=== PATIENT | female | born 1965 | race Caucasian/White ===

== ENCOUNTER → 2019-03-02 | Outpatient (CLI) | payer BC ==
--- NOTE | 2019-03-02 10:32 | Diagnostic Imaging Report ---
PROCEDURE: CT sinuses without contrast. TECHNIQUE: Multiple contiguous axial images were obtained through the sinuses without the use of intravenous contrast. Coronal and sagittal reformations were then performed. Auto Exposure Controls were utilized during the CT exam to meet ALARA standards for radiation dose reduction. INDICATION: Cough and chronic sinusitis. FINDINGS: The frontal, ethmoid, sphenoid, and maxillary sinuses are clear. The ostiomeatal complexes are widely patent. There are no manny bullosa. There is mild tortuosity of the nasal septum. The globes and intraorbital structures are unremarkable. The nasopharyngeal soft tissues are symmetric and without mass effect. IMPRESSION: Unremarkable CT sinus. Dictated by: Dictated on workstation # [id number]
== END ==
LOC: RAD FS 09:39
PROVIDERS: ATTEND Otolaryngology Otolaryngology/Facial Plastic Surgery
DX: J32.1 Chronic frontal sinusitis (principal); J32.0 Chronic maxillary sinusitis
CPT/HCPCS: 70486

== ENCOUNTER → 2019-07-15 | Outpatient (CLI) | payer OTHER, BC ==
--- NOTE | 2019-07-15 10:55 | Diagnostic Imaging Report ---
Left wrist at 1007 hours. INDICATION: Fell, wrist pain. FINDINGS: On the lateral view, there is a vague area of slightly increased density overlying the distal radial metaphyses. This finding is not well appreciated on the other views and may be secondary to superimposition alone. The possibility that there is a minimal impaction fracture of the distal radius should still be considered. If further imaging is desired, then CT would be recommended. The radiocarpal joint is well maintained. The soft tissues are unremarkable. IMPRESSION: 1. There is a question of a minimal impaction fracture of the distal radius. Additional considerations as above. 2. There is no acute bony abnormality noted otherwise. Dictated by: Dictated on workstation # [id number]
== END ==
LOC: RAD FS 10:03
PROVIDERS: ATTEND Nurse Practitioner
DX: S52.592A Other fractures of lower end of left radius, initial encounter for closed fracture (principal); W19.XXXA Unspecified fall, initial encounter
CPT/HCPCS: 73110

== ENCOUNTER → 2019-08-03 | Outpatient (CLI) | payer OTHER, BC ==
--- NOTE | 2019-08-03 08:53 | Diagnostic Imaging Report ---
INDICATION: Fracture. COMPARISON: 07/15/2019. TECHNIQUE: Four radiographs of the left wrist are dated 08/03/2019. FINDINGS: Cast material is in place which limits evaluation of the underlying osseous structures. Within the limits of the examination, there is no acute fracture or dislocation. No definite healing fracture is associated with the distal radius. Evaluation of the triquetral bone is significantly limited secondary to overlying cast material. The carpal alignment is well maintained. The scapholunate distance is within normal limits. IMPRESSION: Cast material is in place which limits evaluation. No definitive evidence of an acute or healing fracture. Dictated by: Dictated on workstation # [id number]
== END ==
LOC: RAD FS 08:08
PROVIDERS: ATTEND Nurse Practitioner
DX: S52.592D Other fractures of lower end of left radius, subsequent encounter for closed fracture with routine healing (principal); S62.112D Displaced fracture of triquetrum [cuneiform] bone, left wrist, subsequent encounter for fracture with routine healing
CPT/HCPCS: 73110

== ENCOUNTER → 2019-08-23 | Outpatient (CLI) | payer OTHER, BC ==
--- NOTE | 2019-08-23 08:30 | Diagnostic Imaging Report ---
INDICATION: Left wrist fracture. EXAMINATION: AP, oblique and lateral views of the left wrist are obtained. FINDINGS: Since 08/03/2019, there has been further obscuration of distal left radial fracture. There is a sclerotic band in the metaphysis at site of previous fracture. No new fracture or malalignment is identified. IMPRESSION: Apparent good healing of left radial metaphyseal fracture without new abnormality detected. Dictated by: Dictated on workstation # [id number]
== END ==
LOC: RAD FS 08:10
PROVIDERS: ATTEND Nurse Practitioner
DX: S62.112D Displaced fracture of triquetrum [cuneiform] bone, left wrist, subsequent encounter for fracture with routine healing (principal)
CPT/HCPCS: 73100

== ENCOUNTER → 2020-05-09 | Outpatient (CLI) | payer BC ==
--- NOTE | 2020-05-09 14:05 | Diagnostic Imaging Report ---
INDICATION: Shoulder pain. TECHNIQUE: Three views of the left shoulder were obtained. FINDINGS: The alignment is normal. There is no fracture or dislocation. The left lung is clear. The soft tissues are unremarkable. IMPRESSION: No acute radiographic abnormality. Dictated by: Dictated on workstation # [id number]
== END ==
LOC: RAD FS 12:06
PROVIDERS: ATTEND Family Medicine
DX: G89.29 Other chronic pain (principal); M25.512 Pain in left shoulder
CPT/HCPCS: 73030

== ENCOUNTER → 2020-05-10 | Outpatient (CLI) | payer BC ==
[2020-05-10 08:46] LABS: BASOPHILS # (AUTO) 0.1 10^3/uL (0.0-0.1); BASOPHILS % (AUTO) 1 % (0-10); EOSINOPHILS # (AUTO) 0.4 10^3/uL (0.0-0.3); EOSINOPHILS % (AUTO) 6 % (0-10); HEMATOCRIT 42 % (35-52); HEMOGLOBIN 13.8 G/DL (11.5-16.0); LYMPHOCYTES # (AUTO) 2.6 X 10^3 (1.0-4.0); LYMPHOCYTES % (AUTO) 36 % (12-44); MEAN CORPUSCULAR HEMOGLOBIN 29 PG (25-34); MEAN CORPUSCULAR HGB CONC 33 G/DL (32-36); MEAN CORPUSCULAR VOLUME 89 FL (80-99); MEAN PLATELET VOLUME 10.2 FL (7.4-10.4); MONOCYTES # (AUTO) 0.6 X 10^3 (0.0-1.0); MONOCYTES % (AUTO) 8 % (0-12); NEUTROPHILS # (AUTO) 3.5 X 10^3 (1.8-7.8); NEUTROPHILS % (AUTO) 49 % (42-75); PLATELET COUNT 268 10^3/uL (130-400); WHITE BLOOD COUNT 7.3 10^3/uL (4.3-11.0)
[2020-05-10 09:03] LABS: ALBUMIN 4.1 GM/DL (3.2-4.5); BILIRUBIN,TOTAL 0.3 MG/DL (0.1-1.0); CALCIUM 9.4 MG/DL (8.5-10.1); CREATININE SERUM 0.96 MG/DL (0.60-1.30); POTASSIUM 4.3 MMOL/L (3.6-5.0); TOTAL PROTEIN 6.8 GM/DL (6.4-8.2)
== END ==
LOC: LAB FS 08:20
PROVIDERS: ATTEND Family Medicine
DX: Z00.00 Encounter for general adult medical examination without abnormal findings (principal); Z79.899 Other long term (current) drug therapy
CPT/HCPCS: 36415; 80053; 80061; 85025

== ENCOUNTER 2020-06-13 10:25 | Emergency (ER) | payer BC ==
[~2020-06-13] VITALS: Ht 154.9 cm; Wt 85.0 kg
--- NOTE | 2020-06-13 10:46 | ED General ---
General Chief Complaint: Chest Pain Stated Complaint: CHEST PAIN Nursing Triage Note: Patient reports onset of left chest pain that radiates to upper back last night, states it has worsened this morning. She states the pain is constant and sharpens periodically. She reports the pain worsens with deep breathing. She denies any fever, cough, or shortness of breath. She denies any nausea or vomiting. Nursing Sepsis Screen: No Definite Risk History of Present Illness Date Seen by Provider: Jun 13, 2020 Time Seen by Provider: 10:46 Initial Comments Patient presenting to emergency department for evaluation of left-sided chest pain that started yesterday evening and has persisted and been constant through the night into this morning as well. She describes it as a constant ache that becomes much more intense when she takes a deep breath she feels a sharp stabbing pain. She said she had bronchitis a week or 2 ago. She denies any current cough fever shortness of breath nausea vomiting or diaphoresis. She denies any history of diabetes hypertension high cholesterol smoking or family history of heart disease. She denies any prior cardiac risk stratification. She does have signs of a left bundle branch block on her EKG and I asked her if she does have an abnormal EKG and she said that she does but she did not know what exactly was wrong within the past. She said she had issues with tachycardia but no arrhythmias and she is not on any blood thinners. She is in no obvious distress with normal vital signs. Allergies and Home Medications Allergies Coded Allergies: azithromycin (Verified Allergy, Unknown, itching, 06/13/20) erythromycin base (Verified Allergy, Unknown, 06/13/20) morphine (Verified Allergy, Unknown, itching, 06/13/20) Patient Home Medication List Home Medication List Reviewed: Yes Review of Systems Review of Systems Constitutional: no symptoms reported EENTM: no symptoms reported Respiratory: no symptoms reported Cardiovascular: chest pain Gastrointestinal: no symptoms reported Genitourinary: no symptoms reported Musculoskeletal: no symptoms reported Skin: no symptoms reported Psychiatric/Neurological: No Symptoms Reported All Other Systems Reviewed Negative Unless Noted: Yes Past Xbbikdl-Vnpber-Duonph Hx Patient Social History Recent Foreign Travel: No Contact w/Someone Who Travel: No Recent Infectious Disease Expo: No Physical Exam Vital Signs Vital Signs - First Documented 06/13/20 10:39 Temp 36.8 Pulse 80 Resp 16 B/P (MAP) 133/70 (91) Pulse Ox 97 O2 Delivery Room Air Capillary Refill : Less Than 3 Seconds Height, Weight, BMI Height: '" Weight: lbs. oz. kg; 35.00 BMI Method: General Appearance: No Apparent Distress, WD/WN HEENT: PERRL/EOMI Neck: Supple Respiratory: Chest Non Tender, No Respiratory Distress Cardiovascular: Regular Rate, Rhythm Gastrointestinal: Non Tender, Soft Back: Normal Inspection Extremity: Normal Capillary Refill, No Pedal Edema Neurologic/Psychiatric: Alert, Oriented x3 Skin: Warm/Dry Progress/Results/Core Measures Suspected Sepsis Recent Fever Within 48 Hours: No Infection Criteria Present: None New/Unexplained Altered Menta: No Sepsis Screen: No Definite Risk SIRS Temperature: Pulse: 80 Respiratory Rate: 16 Laboratory Tests 06/13/20 10:55: White Blood Count 9.1 Blood Pressure 133 /70 Mean: 91 Laboratory Tests 06/13/20 10:55: Creatinine 0.88, INR Comment 0.9, Platelet Count 299, Total Bilirubin 0.2 Results/Orders Lab Results Laboratory Tests Test 06/13/20 10:55 Range/Units White Blood Count 9.1 4.3-11.0 10^3/uL Red Blood Count 4.96 4.35-5.85 10^6/uL Hemoglobin 14.8 11.5-16.0 G/DL Hematocrit 44 35-52 % Mean Corpuscular Volume 88 80-99 FL Mean Corpuscular Hemoglobin 30 25-34 PG Mean Corpuscular Hemoglobin Concent 34 32-36 G/DL Red Cell Distribution Width 13.1 10.0-14.5 % Platelet Count 299 130-400 10^3/uL Mean Platelet Volume 10.3 7.4-10.4 FL Immature Granulocyte % (Auto) 0 % Neutrophils (%) (Auto) 56 42-75 % Lymphocytes (%) (Auto) 33 12-44 % Monocytes (%) (Auto) 7 0-12 % Eosinophils (%) (Auto) 4 0-10 % Basophils (%) (Auto) 1 0-10 % Neutrophils # (Auto) 5.1 1.8-7.8 X 10^3 Lymphocytes # (Auto) 3.0 1.0-4.0 X 10^3 Monocytes # (Auto) 0.6 0.0-1.0 X 10^3 Eosinophils # (Auto) 0.3 0.0-0.3 10^3/uL Basophils # (Auto) 0.1 0.0-0.1 10^3/uL Immature Granulocyte # (Auto) 0.0 0.0-0.1 10^3/uL Prothrombin Time 12.2 12.2-14.7 SEC INR Comment 0.9 0.8-1.4 Activated Partial Thromboplast Time 27 24-35 SEC D-Dimer 0.25 0.00-0.49 UG/ML Sodium Level 140 135-145 MMOL/L Potassium Level 3.9 3.6-5.0 MMOL/L Chloride Level 106 98-107 MMOL/L Carbon Dioxide Level 22 21-32 MMOL/L Anion Gap 12 5-14 MMOL/L Blood Urea Nitrogen 21 H 7-18 MG/DL Creatinine 0.88 0.60-1.30 MG/DL Estimat Glomerular Filtration Rate > 60 BUN/Creatinine Ratio 24 Glucose Level 104 70-105 MG/DL Calcium Level 9.6 8.5-10.1 MG/DL Corrected Calcium 8.5-10.1 MG/DL Total Bilirubin 0.2 0.1-1.0 MG/DL Aspartate Amino Transf (AST/SGOT) 17 5-34 U/L Alanine Aminotransferase (ALT/SGPT) 18 0-55 U/L Alkaline Phosphatase 95 40-136 U/L Troponin I < 0.30 <0.30 NG/ML Pro-B-Type Natriuretic Peptide 95.3 H <75.0 PG/ML Total Protein 7.4 6.4-8.2 GM/DL Albumin 4.6 H 3.2-4.5 GM/DL My Orders Orders - JARROD ALCARAZ DO Cbc With Automated Diff (06/13/20 10:55) Comprehensive Metabolic Panel (06/13/20 10:55) Fibrin Degradation Products (06/13/20 10:55) Iv/Invasive Line Insertion .IV start (06/13/20 10:55) Lipase (06/13/20 10:55) Partial Thromboplastin Time (06/13/20 10:55) Probnp Fs (06/13/20 10:55) Protime With Inr (06/13/20 10:55) Troponin I Fs (06/13/20 10:55) Chest 1 View Ap/Pa Only (06/13/20 10:55) Ekg Tracing (06/13/20 10:55) Aspirin Chewable Tablet (Baby Aspirin Ch (06/13/20 11:00) Ketorolac Injection (Toradol Injection) (06/13/20 11:00) Hydrocodone/Apap 5/325 Tablet (Lortab 5 (06/13/20 11:00) Medications Given in ED Current Medications Medications Dose Ordered Sig/Kristal Route Start Time Stop Time Status Last Admin Dose Admin Acetaminophen/ Hydrocodone Bitart 2 tab ONCE ONCE PO 06/13/20 11:00 06/13/20 11:01 DC 06/13/20 11:14 2 TAB Aspirin 324 mg ONCE ONCE PO 06/13/20 11:00 06/13/20 11:01 DC 06/13/20 11:14 324 MG Ketorolac Tromethamine 15 mg ONCE ONCE IVP 06/13/20 11:00 06/13/20 11:01 DC 06/13/20 11:14 15 MG Vital Signs/I&O 06/13/20 06/13/20 10:39 10:43 Temp 36.8 Pulse 80 Resp 16 B/P (MAP) 133/70 (91) Pulse Ox 97 O2 Delivery Room Air Room Air Capillary Refill : Less Than 3 Seconds 2 Blood Pressure Mean: 91 Progress Note : Progress Note Patient's pain improved significantly after aspirin Toradol and [place] emergency department however she says she does still have some pain when she takes a deep breath but is much improved. EKG and trop are negative more than 6 hours from onset of pain. I discussed the results of all the testing with the patient and further planning including inpatient versus outpatient testing and treatment. Patient's heart scores equal to 3 putting her at low risk for adverse cardiac event and using shared decision making patient decided she would like to go home and follow with primary care provider as an outpatient within the next 72 hours. I told her that this is likely pleurisy and that she can take an aspirin daily and ibuprofen as well for pain and [place] for breakthrough pain but she should follow with her primary care provider and come back to the ED sooner with worsening pain shortness of breath with or general concerns. Patient aware and agreeable with plan for discharge and verbalized understanding of the above instructions. Departure Impression Primary Impression: Pleuritic chest pain Disposition: HOME, SELF-CARE Condition: Stable Departure-Patient Inst. Referrals: MARI JETT MD (PCP/Family) Primary Care Physician Patient Instructions: Pleuritic Chest Pain (DC) Add. Discharge Instructions: Take 81mg aspirin daily Take 600mg ibuprofen every 6 hours for pain [place] for breakthrough pain. PCP f/u this week. Come back with worsening symptoms. Thank you! All discharge instructions reviewed with patient and/or family. Voiced understanding. Scripts Hydrocodone/Acetaminophen (Hydrocodone-Acetamin 5-325 mg) 1 Each Tablet 1 EACH PO Q8H PRN for PAIN-SEVERE (8-10), #6 TAB Prov: JARROD ALCARAZ DO 06/13/20 JARROD ALCARAZ DO Jun 13, 2020 10:46
[2020-06-13] MEDS ORDERED: KETOROLAC 30 MG/ML VIAL IVP ONE (11:00)
[2020-06-13] MEDS ORDERED: ASPIRIN 81 MG CHEW (CHILDREN'S ASA) PO ONE (11:00)
[2020-06-13] MEDS ORDERED: HYDROcodone/APAP 5 MG/325 MG (LORTAB) TAB PO ONE (11:00)
[2020-06-13 11:05] LABS: BASOPHILS # (AUTO) 0.1 10^3/uL (0.0-0.1); BASOPHILS % (AUTO) 1 % (0-10); EOSINOPHILS # (AUTO) 0.3 10^3/uL (0.0-0.3); EOSINOPHILS % (AUTO) 4 % (0-10); HEMATOCRIT 44 % (35-52); HEMOGLOBIN 14.8 G/DL (11.5-16.0); LYMPHOCYTES % (AUTO) 33 % (12-44); MEAN CORPUSCULAR HEMOGLOBIN 30 PG (25-34); MEAN CORPUSCULAR HGB CONC 34 G/DL (32-36); MEAN CORPUSCULAR VOLUME 88 FL (80-99); MEAN PLATELET VOLUME 10.3 FL (7.4-10.4); MONOCYTES # (AUTO) 0.6 X 10^3 (0.0-1.0); MONOCYTES % (AUTO) 7 % (0-12); NEUTROPHILS # (AUTO) 5.1 X 10^3 (1.8-7.8); NEUTROPHILS % (AUTO) 56 % (42-75); PLATELET COUNT 299 10^3/uL (130-400); WHITE BLOOD COUNT 9.1 10^3/uL (4.3-11.0)
[2020-06-13 11:19] LABS: FIBRIN DEGRADATION PRODUCTS 0.25 UG/ML (0.00-0.49); INR 0.9 (0.8-1.4); PROTHROMBIN TIME PATIENT 12.2 SEC (12.2-14.7)
[2020-06-13 11:29] LABS: ALANINE AMINOTRANSFERASE 18 U/L (0-55); ALKALINE PHOSPHATASE 95 U/L (40-136); BILIRUBIN,TOTAL 0.2 MG/DL (0.1-1.0); BUN/CREATININE RATIO 24; CALCIUM 9.6 MG/DL (8.5-10.1); CARBON DIOXIDE 22 MMOL/L (21-32); CHLORIDE 106 MMOL/L (98-107); CREATININE SERUM 0.88 MG/DL (0.60-1.30); GFR ESTIMATED > 60; GLUCOSE 104 MG/DL (70-105); POTASSIUM 3.9 MMOL/L (3.6-5.0); SODIUM 140 MMOL/L (135-145)
[2020-06-13 11:30] LABS: ALBUMIN 4.6 GM/DL (3.2-4.5); TOTAL PROTEIN 7.4 GM/DL (6.4-8.2)
--- NOTE | 2020-06-13 11:31 | Diagnostic Imaging Report ---
INDICATION: Chest pain. TECHNIQUE: A frontal chest was obtained at 11:03 AM. FINDINGS: The heart and mediastinal silhouette are normal in appearance. The lungs are clear. There is no pneumothorax or pleural fluid. IMPRESSION: Negative chest. Dictated by: Dictated on workstation # [id number]
[2020-06-13] MEDS ORDERED: ACHD5005 PO (12:10)
[2020-06-13 12:20] VITALS: BP 118/62
[2020-06-15 15:44] LABS: LIPASE 59 U/L (8-78)
== END 2020-06-13 12:20 | disposition home or self-care (01) ==
LOC: EDUNIT# 10:25 → ER FS 10:27
DX: R07.89 Other chest pain (principal); Z88.1 Allergy status to other antibiotic agents; Z88.5 Allergy status to narcotic agent
CPT/HCPCS: 36415; 71045; 80053; 83690; 83880; 84484; 85025; 85379; 85610; 85730

== ENCOUNTER → 2021-03-19 | Outpatient (CLI) | payer BC ==
[~2021-03-19] MED LIST: ACHD5005 PO
[2021-03-19 08:42] LABS: HEMATOCRIT 41 % (35-52); HEMOGLOBIN 13.8 G/DL (11.5-16.0); MEAN CORPUSCULAR HEMOGLOBIN 29 PG (25-34); WHITE BLOOD COUNT 6.7 10^3/uL (4.3-11.0)
[2021-03-19 08:43] LABS: BASOPHILS % (AUTO) 1 % (0-10); EOSINOPHILS % (AUTO) 6 % (0-10); LYMPHOCYTES % (AUTO) 40 % (12-44); MEAN CORPUSCULAR HGB CONC 33 G/DL (32-36); MEAN CORPUSCULAR VOLUME 88 FL (80-99); MEAN PLATELET VOLUME 10.6 FL (7.4-10.4); MONOCYTES % (AUTO) 8 % (0-12); NEUTROPHILS % (AUTO) 45 % (42-75); PLATELET COUNT 261 10^3/uL (130-400)
[2021-03-19 08:44] LABS: BASOPHILS # (AUTO) 0.1 10^3/uL (0.0-0.1); EOSINOPHILS # (AUTO) 0.4 10^3/uL (0.0-0.3); LYMPHOCYTES # (AUTO) 2.6 X 10^3 (1.0-4.0); MONOCYTES # (AUTO) 0.6 X 10^3 (0.0-1.0)
[2021-03-19 09:11] LABS: CREATININE SERUM 0.97 MG/DL (0.60-1.30)
[2021-03-19 09:12] LABS: ALBUMIN 4.2 GM/DL (3.2-4.5); BILIRUBIN,TOTAL 0.2 MG/DL (0.1-1.0); CALCIUM 9.5 MG/DL (8.5-10.1); TOTAL PROTEIN 6.7 GM/DL (6.4-8.2)
== END ==
LOC: LAB FS 07:56
PROVIDERS: ATTEND Family Medicine
DX: Z00.00 Encounter for general adult medical examination without abnormal findings (principal); M25.50 Pain in unspecified joint; R53.82 Chronic fatigue, unspecified
CPT/HCPCS: 36415; 80053; 80061; 84443; 85025; 86038; 86039; 86200

== ENCOUNTER → 2021-09-11 | Outpatient (CLI) | payer BC ==
--- NOTE | 2021-09-11 10:46 | Diagnostic Imaging Report ---
EXAMINATION: Chest 2 view HISTORY: ACUTE COUGH COMPARISON: 06/13/2020 FINDINGS: Heart size and pulmonary vasculature are normal. The lungs are clear without consolidation, pleural effusion, or pneumothorax. The osseous structures are intact. IMPRESSION: 1. No acute radiographic abnormality in the chest. Dictated by: Dictated on workstation # [id number]
== END ==
LOC: RAD FS 09:50
PROVIDERS: ATTEND Registered Nurse Emergency
DX: R05.1 Acute cough (principal)
CPT/HCPCS: 71046

== ENCOUNTER → 2022-03-22 | Outpatient (CLI) | payer BC ==
[2022-03-22 10:18] LABS: BILIRUBIN,TOTAL 0.3 MG/DL (0.1-1.0); CALCIUM 9.3 MG/DL (8.5-10.1); CREATININE SERUM 0.95 MG/DL (0.60-1.30); POTASSIUM 4.1 MMOL/L (3.6-5.0)
[2022-03-22 10:19] LABS: ALBUMIN 4.3 GM/DL (3.2-4.5); TOTAL PROTEIN 7.1 GM/DL (6.4-8.2)
== END ==
LOC: LAB FS 09:05
PROVIDERS: ATTEND Registered Nurse Emergency
DX: Z00.00 Encounter for general adult medical examination without abnormal findings (principal)
CPT/HCPCS: 36415; 80053; 80061; 84443

== ENCOUNTER → 2022-07-11 | Outpatient (CLI) | payer BC | LOC: CARDFS 12:44 | PROVIDERS: ATTEND Internal Medicine Cardiovascular Disease | DX: I10 Essential (primary) hypertension (principal); I25.10 Atherosclerotic heart disease of native coronary artery without angina pectoris | CPT/HCPCS: 93306 ==

== ENCOUNTER 2022-08-07 07:41 | Outpatient (CLI) | payer BC ==
[~2022-08-07] VITALS: Ht 154.9 cm; Wt 91.2 kg
[2022-08-07] VITALS (9 sets, daily range): BP systolic 112–155; BP diastolic 68–84
[2022-08-07] MEDS ORDERED: CATHETER FLUSH 10 ML SYR IVP PRN (08:00)
[2022-08-07] MEDS ORDERED: REGADENOSON 0.4 MG/5 ML SYR (LEXISCAN) IV ONE ×2 (09:31→09:45)
[2022-08-07] MEDS ORDERED: NITROGLYCERIN 0.4 MG SL TABS BTL 25'S SL ONE (09:39)
[2022-08-07] MEDS ORDERED: HEParin (CATH LAB) 2,000 ML IV ONE (12:18)
[2022-08-07] MEDS ORDERED: LIDOCAINE 1% INJ 30 ML (XYLOCAINE) VIAL ONE (12:18)
[2022-08-07] MEDS ORDERED: NS IV 1000 ML 1,000 ML ONE (12:18)
[2022-08-07 12:45] LABS: HEMATOCRIT 42 % (35-52); HEMOGLOBIN 13.9 g/dL (11.5-16.0); MEAN CORPUSCULAR HEMOGLOBIN 30 pg (25-34); MEAN CORPUSCULAR HGB CONC 33 g/dL (32-36); MEAN CORPUSCULAR VOLUME 89 fL (80-99); MEAN PLATELET VOLUME 10.3 fL (9.0-12.2); PLATELET COUNT 296 10^3/uL (130-400); WHITE BLOOD COUNT 8.7 10^3/uL (4.3-11.0)
[2022-08-07] MEDS ORDERED: NS IV 1000 ML 1,000 ML IV ONE (12:45)
[2022-08-07 12:53] LABS: INR 1.1 (0.8-1.4); PROTHROMBIN TIME PATIENT 14.9 SEC (12.2-14.7)
[2022-08-07 13:03] LABS: ALBUMIN 4.2 GM/DL (3.2-4.5); BILIRUBIN,TOTAL 0.3 MG/DL (0.1-1.0); CALCIUM 8.9 MG/DL (8.5-10.1); CREATININE SERUM 0.83 MG/DL (0.60-1.30); POTASSIUM 3.7 MMOL/L (3.6-5.0); TOTAL PROTEIN 7.1 GM/DL (6.4-8.2)
--- NOTE | 2022-08-07 13:04 | Diagnostic Imaging Report ---
INDICATION: Abnormal cardiac stress test Portable AP view of chest is obtained with comparison made to study of 06/13/2020. FINDINGS: Heart size and pulmonary vascularity are within normal limits, and the lungs are clear, bilaterally. IMPRESSION: Unremarkable chest. Dictated by: Dictated on workstation # [id number]
[2022-08-07] MEDS ORDERED: HYDR-700 PO (13:19)
[2022-08-07] MEDS ORDERED: PREG25CA19 PO (13:19)
[2022-08-07] MEDS ORDERED: ESTR10TA9 PO (13:19)
[2022-08-07] MEDS ORDERED: CITA20TA9 PO (13:19)
[2022-08-07] MEDS ORDERED: FLEC100T PO (13:19)
[2022-08-07] MEDS ORDERED: RIVA20TA PO (13:19)
[2022-08-07] MEDS ORDERED: LEVO5TAB28 PO (13:19)
[2022-08-07] MEDS ORDERED: DILT240C47 PO (13:19)
--- NOTE | 2022-08-07 14:09 | Cardiology Stress Test Report ---
Stress Test Report Date of Procedure/Referring: Date of Procedure: Aug 07, 2022 PCP Mari Jett MD Admitting Physician Admitting Physician: Attending Physician: Melvin Gloria MD Baseline Heart Rate: 78 Baseline Blood Pressure: Blood Pressure Systolic: 155 Blood Pressure Diastolic: 84 Baseline Vitals Vital Signs Date Time Temp Pulse Resp B/P (MAP) Pulse Ox O2 Delivery O2 Flow Rate FiO2 08/07/22 09:27 77 08/07/22 12:53 36.3 16 99 Room Air Baseline EKG: Baseline EKG: LBBB Summary After explaining the procedure to the patient, she signed a consent and then brought to the stress nuclear laboratory. Patient received 0.4 mg Lexiscan for stress test, ECG, heart rate and blood pressure were monitored continuously. Resting and stress dose of radio tracer were injected, imaging was acquired and reviewed in short axis, horizontal long axis and vertical long axis views. TID: 0.87 SSS: 8 SDS: 4 EF: 55 1. Patient tolerated Lexiscan well, had recurrent chest pain required nitroglycerin 2. Baseline left bundle branch block persisted during test 3. Reversible ischemia involving the mid to apical anterior wall, true apex and inferoapical segment 4. Normal left ventricular size, ejection fraction 55% Copy Copies To 1: MARI JETT MD, BASHAR J MD Aug 07, 2022 14:09
[2022-08-07] MEDS ORDERED: MIDAZOLAM 5 MG/5 ML (VERSED) VIAL ONE (15:01)
[2022-08-07] MEDS ORDERED: NITRO DRIP 25000 MCG/D5W 250 ML IV ONE (15:01)
[2022-08-07] MEDS ORDERED: HEParin 1000 UNIT/ML (10ML VIAL) FOR BOLUS ONE (15:01)
[2022-08-07] MEDS ORDERED: VERAPAMIL 5 MG/2 ML (CALAN) VIAL IV ONE (15:01)
[2022-08-07] MEDS ORDERED: fentaNYL INJ 100 MCG/2 ML AMP ONE ×2 (15:01→16:38)
--- NOTE | 2022-08-07 16:21 | Cardiac Procedure Note-CS/ASA ---
Pre-Procedure Note Pre-Op Procedure Note Date of Available H&P: Jul 08, 2022 Date H&P Reviewed: Aug 07, 2022 Time H&P Reviewed: 15:30 History & Physical: H&P Reviewed, Patient Examed, No changes noted Pre-Operative Diagnosis: CAD Conscious Sedation Pre-Proced Time 15:30 ASA Score 3 For ASA 3 and 4: Consider anesthesia and medical clearance. Also, for patients with a history of failed moderate sedation consider anesthesia. Airway Lungs Heart ASA score ASA 1: a normal healthy patient ASA 2: a patient with a mild systemic disease (mid diabetes, controlled hypertension, obesity ASA 3: a patient with a severe systemic disease that limits activity (angina, COPD, prior Myocardial infarction) ASA 4: a patient with an incapacitating disease that is a constant threat to life (CHF, renal failure) ASA 5: a moribund patient not expected to survive 24 hrs. (ruptured aneurysm) ASA 6: a declared brain- patient whose organs are being harvested. For emergent operations, add the letter E after the classification Mallampati Classification Grade 3 Sedation Plan Analgesia, Amnesia, Plan communicated to team members, Discussed options with patient/fam, Discussed risks with patient/fam The patient is an appropriate candidate to undergo the planned procedure, sedation, and anesthesia. The patient immediately re-assessed prior to indication. TAMY NUNES MD Aug 07, 2022 16:21
[2022-08-07] MEDS ORDERED: MIDAZOLAM 2 MG/2 ML (VERSED) VIAL ONE (16:38)
[2022-08-07] MEDS ORDERED: NS IV 1000 ML 1,000 ML IV SCH (16:45)
--- NOTE | 2022-08-07 16:45 | Discharge Inst-Post CATH ---
Discharge Inst-CATH/EP Problems Reviewed?: Yes Post Cardiac Cath/EP D/C Inst Follow Up/Plan Appointment with Dr. Gloria's office in 2 to 4 weeks <b>CARDIAC CATH/EP PROCEDURE DISCHARGE INSTRUCTIONS</b> ACTIVITY * Go Home directly and rest. * Limit activity of the leg (or wrist if it was used) for 7 days including aer obics, swimming, jogging, bicycling, etc. * Restrict stair-climbing for 7 days if possible, if not, climb up with your non-cath leg, then bring together on the same step. * Avoid lifting, pushing, pulling or excessive movement of the affected extremi ty for 7 days. * Customary sexual activity may be resumed after 2 days-use caution not to use a position that strains or causes pain to the affected extremity. * No driving for 24 hours. * NO SMOKING. * Avoid straining for bowel movements for 7 days. * Gentle walking on level ground is allowed. * Returning to work will depend on the type of procedure and the results. Your doctor will discuss this with you. CALL YOUR DOCTOR FOR ANY OF THE FOLLOWING: *If bleeding from the puncture site occurs- Apply gentle pressure to site with clean cloth and call your doctor or EMS. * If a knot or lump forms under the skin, increases in size, or causes pain. * If bruising appears to be worsening or moving further down your leg instead of disappearing. * Temperature above 101 F. CARE OF YOUR GROIN INCISION; * Bruising or purple discoloration of the skin near the puncture site is common. * You may shower only, no bathtub bathing for 5 days. Be careful to avoid slipping as your leg may feel stiff. * If a closure device was used on your femoral artery, please see the attached guide regarding care of the device and your leg. * Leave dressing on FOR 24 hours. CARE OF YOUR WRIST INCISION; * Bruising or purple discoloration of the skin near the puncture site is common. * You may shower. * DO NOT submerge wrist. * Leave dressing on FOR 24 hours. TAMY GLORIA MD Aug 07, 2022 16:45
--- NOTE | 2022-08-07 16:48 | Cardiac Cath Report ---
Cardiac Cath Report Physician (s)/Application Support Technician (s) Physician TAMY NUNES MD Pre-Procedure Diagnosis Pre-Procedure Diagnosis: CAD Post-Procedure Note Procedure Start Date: Aug 07, 2022 Name of Procedure: Left heart catheterization Findings/Procedure Note PROCEDURE NOTE: 57-year-old lady with history of coronary artery disease, reporting history of myocardial infarction in the past, had a stress test today, started to have significant chest pain responded to nitroglycerin, has abnormal SPECT images suggestive of ischemia. We discussed the management plan with her and her famil y recommended cardiac catheterization possible PTCA. After explaining the procedure to the patient, all pros and cons were explained, all questions were answered. The patient signed the consent and then she was placed in the cardiac catheterization laboratory. Groin was prepped in SL fashion local anesthesia was used. Sheath placed in the right radial artery, Justice catheter was advanced to the left ventricular cavity, pressure was measured, pullback LV to aorta was done, engage the right and left coronary system, multiple views were obtained. At the end of the procedure the sheath was removed. Vascular band was used FINDINGS: Hemodynamics LV 133/15, end-diastolic pressure of 15 Aorta 127/76 mean of 64 ANATOMY: Left Main is free of obstructive disease Left Anterior Descending is moderate in size with 30% stenosis at the mid LAD nonobstructive disease Left Circumflex is moderate in size with no obstructive disease Right Coronary Artery is dominant artery with mild disease nonobstructive disease LV Gram was not done, pressure was measured CONCLUSION: 1. Mild to moderate coronary artery disease nonobstructive disease 2. Normal left ventricular end-diastolic pressure DISCUSSION AND RECOMMENDATION: Abnormal stress test is probably due to extracardiac attenuation, medical therapy is recommended Anesthesia Type: Conscious Sedation Estimated blood loss (mL): 15 ml Contrast Amount: 34 ml Total Radiation Dose: 227 mGy Post-Procedure Diagnosis Post-operative diagnosis: Chest pain Coronary artery disease Hypertension Hyperlipidemia. TAMY NUNES MD Aug 07, 2022 16:48
== END 2022-08-07 19:30 | disposition home or self-care (01) ==
LOC: CARD 07:41 → SDC 16:55 → CARD 19:30
PROVIDERS: ATTEND Internal Medicine Cardiovascular Disease
DX: I25.10 Atherosclerotic heart disease of native coronary artery without angina pectoris (principal); I10 Essential (primary) hypertension; Z95.9 Presence of cardiac and vascular implant and graft, unspecified
CPT/HCPCS: 36415; 71045; 78452; 80053; 80061; 85027; 85610; 85730; 87081; 93005; 93017; 93458

== ENCOUNTER → 2022-08-28 | Day surgery (SDC) | payer BC ==
[~2022-08-28] VITALS: Ht 154.9 cm; Wt 91.7 kg
[~2022-08-28] MED LIST changes: +CITA20TA9 PO; +DILT240C47 PO; +ESTR10TA9 PO; +FLEC100T PO; +HYDR-700 PO; +LEVO5TAB28 PO; +LIDOCAINE 1% INJ 20 ML VIAL INJ ONE; +LIDOCAINE 1% INJ 30 ML (XYLOCAINE) VIAL ONE; +PREG25CA19 PO; +RIVA20TA PO
--- NOTE | 2022-08-28 11:02 | Implantation of Loop Monitor ---
Implant of Loop Monitior IMPLANTATION OF LOOP MONITOR REPORT DATE OF PROCEDURE: 08/28/22 PREOP DIAGNOSIS: Paroxysmal atrial fibrillation POSTOP DIAGNOSIS: Paroxysmal atrial fibrillation PROCEDURE DETAILS: The patient is a 57 female with history of paroxysmal atrial fibrillation requiring long-term surveillance. Therefore implantable loop recorder was discussed and agreed with the patient. Informed consent was taken. All risks and complications were discussed at length. The patient was draped and prepped in the usual sterile fashion. Local anesthesia was lidocaine, which was given in the substernal area close to the 4th intercostal space. Loop monitor [employer] with serial number [id number] was implanted according to the protocol. Steri- Strips were placed at the end of the procedure. There were no complications and the patient tolerated the procedure well. ANESTHESIA: Local anesthesia with lidocaine. COMPLICATIONS: None CONTRAST/FLUOROSCOPY: None CONCLUSION: Successful implantation of loop monitor with no complication FINAL DIAGNOSIS: Paroxysmal atrial fibrillation Palpitation Hypertension TAMY NUNES MD Aug 28, 2022 11:02
== END | disposition home or self-care (01) ==
LOC: CATH 10:30
PROVIDERS: ATTEND Internal Medicine Cardiovascular Disease
DX: I48.0 Paroxysmal atrial fibrillation (principal); I25.10 Atherosclerotic heart disease of native coronary artery without angina pectoris; I10 Essential (primary) hypertension; E78.5 Hyperlipidemia, unspecified; I47.1 Supraventricular tachycardia; Z87.891 Personal history of nicotine dependence
CPT/HCPCS: 33285; C1764